=== PATIENT | female | born 1945 | race Caucasian/White ===

== ENCOUNTER 2019-10-04 13:26 | Outpatient (CLI) | payer MEDICARE, OTHER ==
[~2019-10-04 13:26] MED LIST: ALPR0.5T6 PO; ASCO100T5 PO; CALC1CAP8 PO; CHOL500015 PO; FISH OIL PO; LEVO75TA PO; LIOT5TAB11 PO; PRAV40TA2 PO; SODI1TAB6 PO
== END 2019-10-04 23:59 | disposition home or self-care (01) ==
LOC: CFH 13:26
PROVIDERS: ATTEND Specialist
DX: H90.3 Sensorineural hearing loss, bilateral (principal); H93.13 Tinnitus, bilateral
CPT/HCPCS: 70480